=== PATIENT | female | born 1995 | race Caucasian/White ===

== ENCOUNTER 2017-11-03 14:32 | Emergency (ER) | payer BC ==
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
[2017-11-03 16:15] LABS: Urine Bilirubin Negative (NEGATIVE); Urine Blood Negative /ul (NEGATIVE); Urine Ketone Negative (NEGATIVE); Urine Nitrite Negative (NEGATIVE); Urine Protein Negative (NEGATIVE); Urine Urobilinogen Normal (NORMAL)
[2017-11-03 16:27] LABS: Urine Appearance Clear; Urine Color Yellow
[2017-11-03 16:28] LABS: Urine Bacteria 1+; Urine RBC None Seen /hpf (0-5); Urine WBC None Seen /hpf (0-5)
[2017-11-03 16:36] LABS: Mean Cell Volume 89.1 fl (78-100); Mean Corpuscular Hemoglobin 32.8 pg (27-31); Mean Corpuscular Hgb Conc 36.8 g/dl (32-36); Red Cell Distribution Width 11.8 % (11.5-14.0)
[2017-11-03 16:57] LABS: White Blood Count 7.1 K/mm3 (4.0-10.5)
[2017-11-03 16:58] LABS: Neutrophil # 4.4 K/mm3 (1.3-6.0); Platelet Count 210 K/mm3 (150-450)
[2017-11-03 17:00] LABS: Hematocrit 28.5 % (37.0-47.0); Hemoglobin 10.5 gm/dL (12.5-16.0)
[2017-11-03 17:01] VITALS: BP 126/74
== END 2017-11-03 17:16 | disposition home or self-care (01) ==
LOC: ER 14:32
DX: O45.8X2 Other premature separation of placenta, second trimester (principal); Z3A.15 15 weeks gestation of pregnancy; W10.8XXA Fall (on) (from) other stairs and steps, initial encounter